=== PATIENT | female | born 1965 | race African-American/Black ===

== ENCOUNTER 2017-01-16 15:05 | Emergency (ER) | payer OTHER ==
[~2017-01-16] VITALS: Ht 170.2 cm; Wt 122.5 kg
[~2017-01-16 15:05] MED LIST: ALBUTEROL SULF8.5 GM INH; ALBUTEROL2.5 MG/3 M INH; AMLODIPINE BES2.5 MG ORAL; AZITHROMYCIN250 MG ORAL; BACTRIM DS TAB1 EAC1 ORAL; HYDROCODON-ACE1 EA15 ORAL; PREDNISONE20 MG ORAL
[2017-01-16] MEDS ORDERED: Ipratropium 0.02% Inh Soln 2.5ml UD HHN ONE (15:15)
[2017-01-16] MEDS ORDERED: Albuterol ud Inhalation HHN ONE (15:15)
[2017-01-16] MEDS: Albuterol ud Inhalation HHN SCH ×2 (16:48→17:22)
[2017-01-16] MEDS: Ipratropium 0.02% Inh Soln 2.5ml UD HHN SCH ×2 (16:48→17:22)
[2017-01-16] MEDS ORDERED: PredniSONE 20mg tab ORAL ONE (17:45)
[2017-01-16] MEDS ORDERED: OCUFLOX5 ML OP (17:51)
[2017-01-16] MEDS ORDERED: PREDNISONE20 MG ORAL (17:51)
[2017-01-16 18:39] VITALS: BP 129/71
--- NOTE | 2017-01-16 21:23 | Emergency Room Report ---
History of Present Illness General Chief Complaint: Upper Respiratory Illness Present Illness HPI The patient is a 51-year-old female with a history of asthma presenting with productive cough and shortness of breath. The pt states that she has used albuterol and atrovent at home which only mildly helped. Pt also admits to bilateral eye redness and yellow discharge which began 2 days prior. Pt states her eyes were crusted shut this morning. The pt denies any pain. Pt denies sick contacts, recent travel, CP, N, V, F, chills, SCHWARTZ Allergies: Coded Allergies: PENICILLIN G (Verified Allergy, Unknown, 08/20/16) Patient History Past Medical History: see triage record Pertinent Family History: none Reviewed Nursing Documentation: PMH: Agreed, PSxH: Agreed Nursing Documentation-PMH Hx Hypertension: Yes Hx Asthma: Yes Review of Systems All Other Systems: negative except mentioned in HPI Physical Exam Vital Signs Date Time Temp Pulse Resp B/P Pulse Ox O2 Delivery O2 Flow Rate FiO2 01/16/17 15:09 99.0 118 20 134/78 100 Room Air 01/16/17 15:53 21 Sp02 EP Interpretation: reviewed, normal General Appearance: no apparent distress, alert, GCS 15, non-toxic Head: normocephalic, atraumatic Eyes: bilateral eye EOMI, bilateral eye PERRL, bilateral eye Scleral Injection , bilateral eye normal inspection ENT: hearing grossly normal, normal pharynx, no angioedema, normal voice, TMs + canals normal, uvula midline Neck: full range of motion, supple/symm/no masses Respiratory: chest non-tender, speaking full sentences, wheezing - bilat Cardiovascular #1: regular rate, rhythm, no edema Musculoskeletal: back normal, gait/station normal, normal range of motion, non- tender Neurologic: alert, oriented x3, responsive, motor strength/tone normal, sensory intact, speech normal Psychiatric: judgement/insight normal, memory normal, mood/affect normal, no suicidal/homicidal ideation Skin: normal color, no rash, warm/dry, well hydrated Lymphatic: no adenopathy Medical Decision Making PA Attestation Dr. Bledsoe is my supervising physician. Patient management was discussed with my supervising physician Diagnostic Impression: Primary Impression: Bacterial conjunctivitis of both eyes Additional Impression: Asthma ER Course The patient is a 51-year-old female with a history of asthma presenting with productive cough and shortness of breath. Pt also complains of bilat eye redness and discharge Differential diagnosis include but not limited to asthma, pharyngitis, sinusitis, AOM, bronchitis, PNA Differential diagnoses considered but not limited to allergic conjunctivitis, bacterial conjunctivitis, viral conjunctivitis, blepharitis, hordeolum Physical exam: No apparent distress. Afebrile. Patient is tachycardic. No tachypnea HEENT exam: There is bilateral conjunctival injection with yellow discharge. PERRL. EOMI. No cervical lymphadenopathy. Lungs: There is bilateral wheezing. No respiratory distress. No accessory muscle use. Otherwise exam is unremarkable The patient is given 2 breathing treatments with albuterol and ipratropium bromide and is feeling better. Lung sounds have increased. Pt is given a dose of prednisone in the ED. Pt will be NH'ed home with a prescription for prednisone and ocuflox. Pt has all other medications for asthma at home and will FU with PMD. ER precautions given Last Vital Signs Date Time Temp Pulse Resp B/P Pulse Ox O2 Delivery O2 Flow Rate FiO2 01/16/17 18:39 99.0 101 19 129/71 100 Room Air 21 Status: improved Disposition: HOME, SELF-CARE Condition: Improved Scripts Ofloxacin (OCUFLOX) 5 Ml Drops 1 DROP OP Q4HR, #5 ML Prov: FRANCINE CASIANO 01/16/17 Prednisone* (PREDNISONE*) 20 Mg Tablet 40 MG ORAL DAILY, #10 TAB Prov: FRANCINE CASIANO 01/16/17 Patient Instructions: Asthma, Adult, Bacterial Conjunctivitis Additional Instructions: I discussed my findings with the patient. All questions and concerns have been answered. Treatment and medication compliance have been addressed. I advised the patient that they need to follow up with PMD in 3-5 days. Return to ED if symptoms worsen, new symptoms arise, or if needed for any reason. Patient verbalized understanding of discharge instructions. FRANCINE CASIANO Jan 16, 2017 21:23
== END 2017-01-16 18:51 | disposition home or self-care (01) ==
LOC: EMR 16:42
DX: J45.909 Unspecified asthma, uncomplicated (principal); H10.9 Unspecified conjunctivitis; I10 Essential (primary) hypertension; Z88.0 Allergy status to penicillin
CPT/HCPCS: 94640; 94664; 99284